=== PATIENT | male | born 1960 ===

== ENCOUNTER 2017-09-05 12:57 | Emergency (ER) | payer OTHER, SELFPAY ==
[2017-09-05 12:57] VITALS: BMI 28.1
[2017-09-05 13:32] VITALS: O2SAT 98
--- NOTE | 2017-09-05 15:29 | RAD ---
PROCEDURE: Radiographs of the Lumbar Spine. HISTORY: LOW BACK PAIN AFTER INJURY COMPARISON: MRI lumbar spine dated 12/16/2014. FINDINGS: BONES: Normal alignment. No listhesis. No fracture. DISC SPACES: Unremarkable. OTHER FINDINGS: None. IMPRESSION: Unremarkable radiographs of the lumbar spine.
--- NOTE | 2017-09-05 15:46 | C.PDOC ---
History Of Present Illness 57 y/o male presents to the ER complaining of chronic lower back pain which has been present since he had a fall and injury several years ago. Patient states that he was recently seen by his PMD and instructed to have X-Ray and MRI of lower back in the beginning of August 2017. Patient reports that he did not have the studies done as of yet and he is requesting to have the studies done in the ER. Denies having new falls, injuries, abdominal pain,dysuria, urinary retention , bowel/bladder incontinence and sensory changes in bilateral legs. Time Seen by Provider: 09/05/17 13:52 Chief Complaint (Nursing): Back Pain History Per: Patient History/Exam Limitations: no limitations Onset/Duration Of Symptoms: Days Current Symptoms Are (Timing): Still Present Severity: Moderate Past Medical History Reviewed: Historical Data, Nursing Documentation, Vital Signs Vital Signs: Last Vital Signs Temp 97.8 F 09/05/17 15:56 Pulse 49 L 09/05/17 15:56 Resp 18 09/05/17 15:56 BP 124/78 09/05/17 15:56 Pulse Ox 98 09/05/17 18:02 - Medical History PMH: Fractures, Gastritis, GERD, Kidney Stones, Chronic Kidney Disease Surgical History: Appendectomy - [facility] Procedures ENDO EXCISION/DEST OF LESION OR TISSUE OF STOMACH (01/13/15) Family History: States: Unknown Family Hx (no pertinent family history) - Social History Hx Tobacco Use: No Hx Alcohol Use: No Hx Substance Use: No - Immunization History Hx Tetanus Toxoid Vaccination: Yes Hx Influenza Vaccination: No Hx Pneumococcal Vaccination: No Review Of Systems Except As Marked, All Systems Reviewed And Found Negative. Gastrointestinal: Negative for: Abdominal Pain Genitourinary: Negative for: Dysuria, Incontinence Musculoskeletal: Positive for: Back Pain (lower back pain) Neurological: Negative for: Weakness, Numbness Physical Exam - Physical Exam Appears: Non-toxic, Other (mild pain) Skin: Normal Color, Warm, Dry Head: Atraumatic, Normacephalic Eye(s): bilateral: Normal Inspection Nose: Normal Oral Mucosa: Moist Neck: Supple Chest: Symmetrical Cardiovascular: Rhythm Regular Respiratory: Normal Breath Sounds, No Rales, No Rhonchi, No Wheezing Gastrointestinal/Abdominal: Normal Exam, Soft, No Tenderness Back: Paraspinal Tenderness (lumbar paraspinal tenderness) Extremity: Normal ROM Neurological/Psych: Oriented x3, Normal Speech, Normal Sensation (bilateral legs ) Gait: Steady ED Course And Treatment O2 Sat by Pulse Oximetry: 98 (RA) Pulse Ox Interpretation: Normal - Other Rad X-Ray- Lumbar Spine X-Ray: Viewed By Me, Read By Radiologist Interpretation: PROCEDURE: Radiographs of the Lumbar Spine. HISTORY: LOW BACK PAIN AFTER INJURY. COMPARISON: MRI lumbar spine dated 12/16/2014. FINDINGS: BONES: Normal alignment. No listhesis. No fracture. DISC SPACES: Unremarkable. OTHER FINDINGS: None. IMPRESSION: Unremarkable radiographs of the lumbar spine. Progress Note: X-Ray - Lumbar Spine ordered and reviewed. Patient treated with Flexeril PO, Motrin PO, and Prednisone PO. Patient has been dischaged and informed that he needs to have an MRI done as an outpatient. Patient has also been instructed to follow up with PMD in 1-2 days and return to the ER if symptoms worsen. Disposition Counseled Patient/Family Regarding: Diagnosis, Need For Followup, Rx Given - Disposition Referrals: [facility] [Outside] Disposition: HOME/ ROUTINE Disposition Time: 15:45 Condition: STABLE Additional Instructions: FOLLOW UP WITH YOUR DOCTOR IN 1-2 DAYS USE MEDICATIONS DIRECTED RETURN TO EMERGENCY ROOM IF SYMPTOMS WORSEN SEGUIMIENTO CON STERN MDICO EN 1-2 SALVADOR USE MEDICAMENTOS SEGN LO INDICADO REGRESE AL FLORI DE EMERGENCIA SI LOS SNTOMAS EMPEORAN Prescriptions: Cyclobenzaprine [Flexeril] 10 mg PO BID PRN #15 tab PRN Reason: Muscle Spasm Naproxen 375 mg PO BID PRN #20 tablet PRN Reason: pain predniSONE [predniSONE Tab] 40 mg PO DAILY #6 tab Instructions: Low Back Pain (DC) Forms: [employer] (Australian), Work Excuse Print Language: [place] HEL[place]IAN - Clinical Impression Clinical Impression: Chronic low back pain - Scribe Statement The provider has reviewed the documentation as recorded by the Tee Kelley Provider Attestation: All medical record entries made by the Scribe were at my direction and personally dictated by me. I have reviewed the chart and agree that the record accurately reflects my personal performance of the history, physical exam, medical decision making, and the department course for this patient. I have also personally directed, reviewed, and agree with the discharge instructions and disposition.
[2017-09-05 15:58] VITALS: BP 124/78; PULSE 49; RESP 18; TEMP 97.8
== END 2017-09-05 15:57 | disposition home or self-care (01) ==
LOC: C.ER 12:57
DX: G89.29 Other chronic pain (principal); M54.5 Low back pain

== ENCOUNTER 2018-04-26 10:28 | Emergency (ER) | payer OTHER ==
[2018-04-26 10:28] VITALS: BMI 28.1
[2018-04-26 10:57] VITALS: BP 141/102; PULSE 86; RESP 18; TEMP 98.5; O2SAT 97
[2018-04-26] MEDS ORDERED: Naproxen 550 mg Tab PO STA (11:14)
--- NOTE | 2018-04-26 11:27 | RAD ---
HISTORY: COUGH, FEVER COMPARISON: None available TECHNIQUE: Chest PA and lateral FINDINGS: LUNGS: No focal consolidation. Biapical pleural thickening. Please note that chest x-ray has limited sensitivity for the detection of pulmonary masses. PLEURA: No significant pleural effusion identified. No definite pneumothorax . CARDIOVASCULAR: Heart size appears within normal limits. No atherosclerotic calcification present. OSSEOUS STRUCTURES: Degenerative changes of the spine. VISUALIZED UPPER ABDOMEN: Unremarkable. OTHER FINDINGS: None. IMPRESSION: No focal consolidation.
[2018-04-26] MEDS ORDERED: Naproxen 550 mg Tab PO ONE (12:07)
--- NOTE | 2018-04-26 12:14 | C.PDOC ---
History Of Present Illness 57 year old male presents to the ED for evaluation of productive cough, sore throat and generalized body aches which began yesterday. Patient states he typically experiences these symptoms at least once every winter. Patient denies fever, chills, chest pain, shortness of breath, and abdominal pain. Time Seen by Provider: 04/26/18 10:55 Chief Complaint (Nursing): Cough, Cold, Congestion History Per: Patient History/Exam Limitations: no limitations Onset/Duration Of Symptoms: Hrs Current Symptoms Are (Timing): Still Present Associated Symptoms: Sore Throat, Cough, Sputum. denies: Fever, Chills Additional History Per: Patient Past Medical History Reviewed: Historical Data, Nursing Documentation, Vital Signs Vital Signs: Last Vital Signs Temp 98.5 F 04/26/18 10:48 Pulse 86 04/26/18 10:48 Resp 18 04/26/18 10:48 BP 141/102 H 04/26/18 10:48 Pulse Ox 97 04/26/18 10:48 - Medical History PMH: Fractures, Gastritis, GERD, Kidney Stones, Chronic Kidney Disease Surgical History: Appendectomy - [facility] Procedures ENDO EXCISION/DEST OF LESION OR TISSUE OF STOMACH (01/13/15) Family History: States: Unknown Family Hx (no pertinent family history) - Social History Hx Tobacco Use: No Hx Alcohol Use: No Hx Substance Use: No - Immunization History Hx Tetanus Toxoid Vaccination: Yes Hx Influenza Vaccination: No Hx Pneumococcal Vaccination: No Review Of Systems Constitutional: Negative for: Fever, Chills ENT: Positive for: Throat Pain Cardiovascular: Negative for: Chest Pain Respiratory: Positive for: Cough, Sputum. Negative for: Shortness of Breath Gastrointestinal: Negative for: Abdominal Pain Musculoskeletal: Positive for: Other (generalized body aches ) Physical Exam - Physical Exam Appears: Non-toxic, No Acute Distress Skin: Normal Color, Warm, Dry Head: Atraumatic, Normacephalic Eye(s): bilateral: Normal Inspection Ear(s): Bilateral: Normal Nose: Normal, No Discharge Oral Mucosa: Moist Throat: Normal, No Erythema, No Exudate Neck: Supple Chest: Symmetrical, No Deformity, No Tenderness Cardiovascular: Rhythm Regular, No Murmur Respiratory: Normal Breath Sounds, No Rales, No Rhonchi, No Wheezing, Other (occasional cough noted ) Extremity: Normal ROM, Capillary Refill (less than 2 seconds ) Neurological/Psych: Oriented x3, Normal Speech, Normal Cognition ED Course And Treatment O2 Sat by Pulse Oximetry: 97 - Other Rad CXR X-Ray: Viewed By Me, Read By Radiologist Interpretation: HISTORY: COUGH, FEVER. COMPARISON: None available. TECHNIQUE: Chest PA and lateral. FINDINGS: LUNGS: No focal consolidation. Biapical pleural thickening. Please note that chest x-ray has limited sensitivity for the detection of pulmonary masses. PLEURA: No significant pleural effusion identified. No definite pneumothorax . CARDIOVASCULAR: Heart size appears within normal limits. No atherosclerotic calcification present. OSSEOUS STRUCTURES: Degenerative changes of the spine. VISUALIZED UPPER ABDOMEN: Unremarkable. OTHER FINDINGS: None. IMPRESSION: No focal consolidation. Progress Note: CXR and Flu swab ordered and reviewed. CXR results are unremarkable. Patient is negative for Flu A/B. Naproxen PO and Tessalon Perles PO given. On reassessment, patient is resting comfortably, showing no signs of distress and is stable for discharge. Patient will be given Rx for Naproxen for pain, Tessalon Perles for cough, and albuterol inhaler. Patient is advised to follow up with PMD/clinic within 1-2 days for further evaluation and understands to return to the ED if symptoms persist or worsen. Disposition Counseled Patient/Family Regarding: Diagnosis, Need For Followup, Rx Given - Disposition Referrals: Radha Campos MD,Casi Medrano [Non-Staff] - Disposition: HOME/ ROUTINE Disposition Time: 12:15 Condition: STABLE Additional Instructions: FOLLOW UP WITH YOUR DOCTOR IN 1-2 DAYS USE MEDICATIONS NEEDED DRINK PLENTY OF FLUIDS RETURN TO EMERGENCY ROOM IF YOUR SYMPTOMS BECOME WORSE SEGUIR CON STERN MDICO EN 1-2 SALVADOR UTILICE MEDICAMENTOS BALTA SE NECESITE BEBER MUCHO LQUIDO VUELVA A LA FLORI DE EMERGENCIA SI VAISHNAVI SNTOMAS SE HACEN PEOR Prescriptions: Albuterol HFA [Ventolin HFA 90 mcg/actuation (8 g)] 0.09 mg IH Q4 PRN #1 puff PRN Reason: Wheezing Benzonatate [Tessalon Perles] 100 mg PO BID PRN #15 sgl PRN Reason: Cough Naproxen 375 mg PO BID PRN #20 tablet PRN Reason: pain Instructions: Upper Respiratory Infection (ED) Forms: [employer] (Sinhala), Work Excuse Print Language: GERMAN - Clinical Impression Clinical Impression: Viral disease, Upper respiratory infection - Scribe Statement The provider has reviewed the documentation as recorded by the Scribe (Natalee Ochoa) Provider Attestation: All medical record entries made by the Scribe were at my direction and personally dictated by me. I have reviewed the chart and agree that the record accurately reflects my personal performance of the history, physical exam, medical decision making, and the department course for this patient. I have also personally directed, reviewed, and agree with the discharge instructions and disposition.
== END 2018-04-26 12:44 | disposition home or self-care (01) ==
LOC: C.ER 10:28
DX: J06.9 Acute upper respiratory infection, unspecified (principal); B34.9 Viral infection, unspecified; N18.9 Chronic kidney disease, unspecified